=== PATIENT | female | born 1955 | race Caucasian/White ===

== ENCOUNTER 2017-01-22 11:12 | Observation (INO) | payer OTHER ==
[~2017-01-22 11:12] MED LIST: DEXAMETHASONE SOD PHOSPHATE INJ 4 MG/1 ML VIAL ONE; GLYCOPYRROLATE INJ 0.4 MG/2 ML VIAL ONE; LIDOCAINE 2% INJ-PF (20 MG/ML) 10 ML AMPUL ONE; NEOSTIGMINE METHYLSULFATE 10 MG/10 ML VIAL ONE; ONDANSETRON HCL INJ/PF 4 MG/2 ML SDV ONE; SUCCINYLCHOLINE CHLORIDE INJ 200 MG/10 ML VIAL ONE; VECURONIUM BROMIDE INJ 10 MG VIAL IV ONE
[2017-01-22] MEDS ORDERED: OXYCODONE-ACETAMINOPHEN 5-325 MG TABLET PO ONE (12:14)
[2017-01-22] MEDS ORDERED: ONDANSETRON 4 MG TAB.RAPDIS SL ONE (12:14)
--- NOTE | 2017-01-22 12:17 | ER Document Report ---
ED Medical Screen (RME) - General Chief Complaint: Abdominal Pain Stated Complaint: RIGHT SIDE ABDOMINAL PAIN Time seen by provider: 12:17 Mode of Arrival: Ambulatory Information source: Patient TRAVEL OUTSIDE OF THE [place] IN LAST 30 DAYS: No - HPI Patient complains to provider of: right upper quadrant abdominal pain Onset: This morning Onset/Duration: Sudden Quality of pain: Achy, Pressure, Sharp, Stabbing Severity: Moderate Pain Level: 4 Associated Symptoms: Nausea Exacerbated by: Denies Relieved by: Denies Similar symptoms previously: No Recently seen / treated by doctor: No Notes: 01/22/17 12:17 Patient is a 61-year-old female who presents to the emergency room complaining of right upper quadrant abdominal pain that started this morning, it is associated with nausea but no vomiting or diarrhea, no fever or chills, no urinary symptoms, no history of similar symptoms previously, patient has not had any abdominal surgeries in the past - Related Data Allergies/Adverse Reactions: No Known Allergies Allergy (Unverified 01/22/17 11:16) Past Medical History Renal/ Medical History: Denies: Hx Peritoneal Dialysis Physical Exam - Vital signs Vitals: Temp Pulse Resp BP Pulse Ox 98.2 F 90 24 H 139/86 H 98 01/22/17 11:19 01/22/17 11:19 01/22/17 11:19 01/22/17 11:19 01/22/17 11:19 Course - Vital Signs Vital signs: Temp Pulse Resp BP Pulse Ox 98.2 F 90 24 H 139/86 H 98 01/22/17 11:19 01/22/17 11:19 01/22/17 11:19 01/22/17 11:19 01/22/17 11:19
[2017-01-22 12:49] LABS: ABSOLUTE BASOPHILS # (AUTO) 0.1 10^3/uL (0.0-0.2); ABSOLUTE EOSINOPHILS # (AUTO) 0.2 10^3/uL (0.0-0.6); ABSOLUTE LYMPHOCYTES (AUTO) 2.7 10^3/uL (0.5-4.7); ABSOLUTE MONOCYTES (AUTO) 0.5 10^3/uL (0.1-1.4); ABSOLUTE NEUT (AUTO) 6.3 10^3/uL (1.7-8.2); BASOPHILS % (AUTO) 0.7 % (0-2); HEMATOCRIT 42.6 % (36.0-47.0); HEMOGLOBIN 15.2 g/dL (12.0-15.5); LYMPHOCYTES % (AUTO) 28.1 % (13-45); MEAN CORPUSCULAR HEMOGLOBIN 33.2 pg (27.0-33.4); MEAN CORPUSCULAR HGB CONC 35.6 g/dL (32.0-36.0); MEAN CORPUSCULAR VOLUME 93 fl (80-97); MONOCYTES % (AUTO) 5.1 % (3-13); RED BLOOD COUNT 4.57 10^6/uL (3.72-5.28); SEGMENTED NEUTROPHILS % (AUTO) 64.1 % (42-78); WHITE BLOOD COUNT 9.8 10^3/uL (4.0-10.5)
[2017-01-22 12:55] LABS: AMORPHOUS SEDIMENT,URINE TRACE /HPF; APPEARANCE,URINE SLIGHTLY-CLOUDY; BILIRUBIN,URINE NEGATIVE (NEGATIVE); GLUCOSE, URINE NEGATIVE (NEGATIVE); KETONES,URINE NEGATIVE (NEGATIVE); LEUKOCYTE ESTERASE,URINE MODERATE (NEGATIVE); NITRITE,URINE POSITIVE (NEGATIVE); PROTEIN,URINE NEGATIVE (NEGATIVE); URINE SPECIFIC GRAVITY 1.004; UROBILINOGEN,URINE NEGATIVE mg/dL (<2.0)
[2017-01-22 13:05] LABS: ALANINE AMINOTRANSFERASE 37 U/L (9-52); ALBUMIN 4.5 g/dL (3.5-5.0); ALKALINE PHOSPHATASE 104 U/L (38-126); ANION GAP 14 (5-19); ASPARTATE AMINO TRANSFERASE 30 U/L (14-36); BILIRUBIN,DIRECT 0.4 mg/dL (0.0-0.4); BILIRUBIN,TOTAL 1.1 mg/dL (0.2-1.3); BLOOD UREA NITROGEN 15 mg/dL (7-20); CARBON DIOXIDE 28 mmol/L (22-30); CHLORIDE 101 mmol/L (98-107); CREATININE RESULT 1.09 mg/dL (0.52-1.25); GLUCOSE 90 mg/dL (75-110); POTASSIUM 3.7 mmol/L (3.6-5.0); SODIUM 142.5 mmol/L (137-145); TOTAL PROTEIN 7.9 g/dL (6.3-8.2)
--- NOTE | 2017-01-22 13:49 | ER Document Report ---
ED GI/ - General Chief Complaint: Abdominal Pain Stated Complaint: RIGHT SIDE ABDOMINAL PAIN Time seen by provider: 13:46 Mode of Arrival: Ambulatory Information source: Patient Notes: 61-year-old female presented to ED for abdominal pain right side right flank pain this started this morning with nausea no vomiting. Denies any fever or chills or urinary symptoms. Has a history of hydronephrosis bladder reflux GERD and kidney reflux. States this pain does not feel like any of those. TRAVEL OUTSIDE OF THE [place] IN LAST 30 DAYS: No - HPI Patient complains to provider of: Abdominal pain. No: Vomiting Onset: This morning Timing/Duration: Sudden Severity at maximum: Severe Severity in ED: Moderate Pain Level: 3 Location: RUQ, RLQ, Right flank Vaginal bleeding (Compared to normal period): None Associated symptoms: Nausea Exacerbated by: Movement, Walking Relieved by: Denies Similar symptoms previously: No Recently seen / treated by doctor: No - Related Data Allergies/Adverse Reactions: No Known Allergies Allergy (Unverified 01/22/17 11:16) Past Medical History - General Information source: Patient - Social History Smoking Status: Never Smoker Cigarette use (# per day): No Chew tobacco use (# tins/day): No Smoking Education Provided: No Frequency of alcohol use: Social Drug Abuse: None Lives with: Family Family History: CAD, DM, Hyperlipidemia, Hypertension Patient has suicidal ideation: No Patient has homicidal ideation: No - Past Medical History Cardiac Medical History: Reports: Hx Hypertension Pulmonary Medical History: Reports: None EENT Medical History: Reports: None Neurological Medical History: Reports: None Endocrine Medical History: Reports: Hx Hypothyroidism Renal/ Medical History: Reports: Other - Hydronephrosis neurogenic bladder bladder reflux GI Medical History: Reports: None Musculoskeltal Medical History: Reports None Skin Medical History: Reports None Psychiatric Medical History: Reports: None Traumatic Medical History: Reports: None Infectious Medical History: Reports: None Past Surgical History: Reports: Hx Oral Surgery - [place] teeth, Hx Tubal Ligation - Immunizations Immunizations up to date: Yes Review of Systems - Review of Systems Constitutional: No symptoms reported EENT: No symptoms reported Cardiovascular: No symptoms reported Respiratory: No symptoms reported Gastrointestinal: Abdominal pain, Nausea Genitourinary: No symptoms reported Female Genitourinary: No symptoms reported Musculoskeletal: No symptoms reported Skin: No symptoms reported Hematologic/Lymphatic: No symptoms reported Neurological/Psychological: No symptoms reported Physical Exam - Vital signs Vitals: Temp Pulse Resp BP Pulse Ox 98.2 F 90 24 H 139/86 H 98 01/22/17 11:19 01/22/17 11:19 01/22/17 11:19 01/22/17 11:19 01/22/17 11:19 Interpretation: Normal - General General appearance: Appears well, Alert - HEENT Head: Normocephalic, Atraumatic Eyes: Normal Pupils: PERRL - Respiratory Respiratory status: No respiratory distress Chest status: Nontender Breath sounds: Normal Chest palpation: Normal - Cardiovascular Rhythm: Regular Heart sounds: Normal auscultation Murmur: No - Abdominal Inspection: Normal Distension: No distension Bowel sounds: Normal Tenderness: Tender - Right side upper and lower right flank Organomegaly: No organomegaly - Back Back: Normal, Nontender - Extremities General upper extremity: Normal inspection, Nontender, Normal color, Normal ROM , Normal temperature General lower extremity: Normal inspection, Nontender, Normal color, Normal ROM , Normal temperature, Normal weight bearing. No: Veena's sign - Neurological Neuro grossly intact: Yes Cognition: Normal Orientation: AAOx4 Jose Luis Coma Scale Eye Opening: Spontaneous Jose Luis Coma Scale Verbal: Oriented Jose Luis Coma Scale Motor: Obeys Commands [place] Coma Scale Total: 15 Speech: Normal Motor strength normal: LUE, RUE, LLE, RLE Sensory: Normal - Psychological Associated symptoms: Normal affect, Normal mood - Skin Skin Temperature: Warm Skin Moisture: Dry Skin Color: Normal Course - Re-evaluation Re-evalutation: 01/22/17 14:[address] Mcgregor with symptoms and assessment and a CT rule out knee stones ordered for her abdominal pain. She also has a abdominal ultrasound ordered and her labs are negative. The CAT scan came back positive for appendicitis. The surgeon was called but he is in surgery and a message was left for him to call back. - Vital Signs Vital signs: Temp Pulse Resp BP Pulse Ox 98.6 F 79 20 133/72 H 95 01/22/17 17:35 01/22/17 17:35 01/22/17 17:35 01/22/17 17:35 01/22/17 17:35 - Laboratory Result Diagrams: 01/22/17 12:15 01/22/17 12:15 Laboratory results interpreted by me: 01/22/17 01/22/17 12:15 12:20 Est GFR (Non-Af Amer) 51 L Urine Nitrite POSITIVE H Ur Leukocyte Esterase MODERATE H - Diagnostic Test Radiology reviewed: Image reviewed, Reports reviewed Discharge - Discharge Clinical Impression: Appendicitis Qualifiers: Appendicitis type: acute appendicitis Acute appendicitis type: unspecified acute appendicitis type Qualified Code(s): K35.80 - Unspecified acute appendicitis Disposition: ADMITTED INPATIENT Admitting Provider: Surgicalist - [facility] Admitted: Surgical Floor
[2017-01-22] MEDS ORDERED: AMPICILLIN SOD/SULBACTAM 3 GM VIAL IV ONE (14:31)
[2017-01-22] MEDS ORDERED: NORMAL SALINE 1000 ML 1,000 ML IV ONE ×2 (14:31)
--- NOTE | 2017-01-22 17:19 | HISTORY AND PHYSICAL E ---
History and Physical NAME: ELLIOT HORVATH : 1955 AGE: 61Y ADMITTED: 01/22/2017 ROOM: CHIEF COMPLAINT: Abdominal pain. HISTORY OF PRESENT ILLNESS: This is a 61-year-old female who complained of right lower quadrant pains around 7 o'clock this morning associated with nausea. She went to the emergency room where a CAT scan of the abdomen revealed acute appendicitis. PAST SURGICAL HISTORY: History of tubal ligation. No other previous surgical problems. PAST MEDICAL HISTORY: 1. History of neurogenic bladder with bladder reflux and hydronephrosis. 2. Hypothyroidism. 3. Hypercholesterolemia. 4. Hypertension. 5. Reflux. MEDICATIONS: 1. She takes Botox for the bladder neurogenic condition. 2. Dexilant for reflux. 3. Hydrochlorothiazide for hypertension. 4. Vesicare. 5. Nitrofurantoin for bladder infections. 6. Citalopram 10 mg daily. 7. Synthroid 75 mcg daily. 8. She also has metronidazole 1% applied to her face daily. REVIEW OF SYSTEMS: As in HPI. Complaining of occasional bladder discomfort and back discomfort. Occasional pain on voiding. Abdominal right lower quadrant pains associated with nausea. The rest of the systems are unremarkable. ALLERGIES: None known. PHYSICAL EXAMINATION: GENERAL: Well-developed, well-nourished, 61-year-old female, alert and oriented and complaining of severe right lower quadrant pains. HEENT: Neck is supple. No thyromegaly. LUNGS: Clear. HEART: Regular sinus rhythm. ABDOMEN: Soft with tenderness in the right lower quadrant with rebound. There is also Rovsing sign. EXTREMITIES: No edema. IMPRESSIONS: Acute appendicitis. PLAN: 1. It is decided the patient will be on IV antibiotics. 2. Laparoscopic appendectomy. DICTATING PHYSICIAN: PHYLICIA SIMON M.D. [id number] PHY#: [id number] ID: [id number] JOB#: [id number] ACCT: [id number] cc:Anny FAUST M.D. >
[2017-01-22] MEDS ORDERED: IBUPROFEN INJ 800 MG/8 ML VIAL IV ONE (17:53)
[2017-01-22] MEDS ORDERED: PROPOFOL INJ 200 MG/20 ML VIAL IV ONE (17:53)
[2017-01-22] MEDS ORDERED: MIDAZOLAM 2 MG/2 ML INJ ONE (17:53)
[2017-01-22] MEDS ORDERED: FENTANYL CITRATE INJ/PF 100 MCG/2 ML AMPUL ONE (17:53)
[2017-01-22] MEDS ORDERED: BUPIVACAINE HCL 0.25 % INJ/PF (2.5 MG/1 ML) 30 ML VIAL ONE (18:08)
[2017-01-22] MEDS ORDERED: ACETAMINOPHEN 100 ML IV ONE (18:23)
[2017-01-22] MEDS ORDERED: PROMETHAZINE HCL INJ 25 MG/1 ML VIAL IV PRN ×2 (19:18)
[2017-01-22] MEDS ORDERED: DIPHENHYDRAMINE HCL 50 MG/ML VIAL IV PRN (19:18)
[2017-01-22] MEDS ORDERED: MORPHINE SULFATE 10 MG/ML INJ IV PRN (19:18)
[2017-01-22] MEDS ORDERED: FENTANYL CITRATE INJ/PF 100 MCG/2 ML AMPUL IV PRN ×3 (19:18)
[2017-01-22] MEDS ORDERED: MEPERIDINE HCL/PF INJ 25 MG/1 ML DISP.SYRIN IV PRN (19:18)
--- NOTE | 2017-01-22 19:33 | EKG REPORT ---
SEVERITY:- ABNORMAL ECG - SINUS RHYTHM NS ST CHANGES : Confirmed by: Cindy Galvan MD 22-Jan-2017 19:32:46
[2017-01-22] MEDS ORDERED: HYDROMORPHONE HCL INJ/PF 2 MG/ML AMPULE IV PRN (20:45)
[2017-01-22] MEDS ORDERED: OXYCODONE-ACETAMINOPHEN 5-325 MG TABLET PO PRN (20:46)
[2017-01-22] MEDS ORDERED: NORMAL SALINE 1000 ML 1,000 ML IV PRN (20:47)
--- NOTE | 2017-01-22 20:53 | OPERATIVE REPORT E ---
Operative Report NAME: ELLIOT HORVATH : 1955 AGE: 61Y DATE OF SURGERY: ROOM: ED21 PREOPERATIVE DIAGNOSIS: ACUTE APPENDICITIS. POSTOPERATIVE DIAGNOSIS: ACUTE APPENDICITIS. OPERATION: Laparoscopic appendectomy. SURGEON: PHYLICIA SIMON M.D. ANESTHESIA: General. INDICATION: This is a 61-year-old female with abdominal pains and a CAT scan of the abdomen revealed acute appendicitis. PROCEDURE: After adequate general anesthesia, the patient was placed in the supine position and the abdomen prepped and draped in the usual sterile fashion. Appropriate timeout was then performed. Next, an incision made over the previous tubal ligation laparoscopy scar and deepened through the subcu. The fascia was then identified and grasped with 2 Leandra clamps on its side and divided in the middle with the 15 blade. The peritoneal cavity was then palpated with the use of the index finger and a little blunt dissection, carried down to the peritoneum. Next, a Jose C trocar was then inserted into the abdominal cavity and CO2 insufflated up to a pressure of 15 mmHg. Next, a camera was then inserted and 2 other trocars placed, a 5 mm in the suprapubic and a 12 mm in the left lower quadrant under direct vision. Next, the appendix was then identified and noted to be going superiorly and laterally. The base of the appendix was subsequently grasped and an opening made towards the neck with the use of Harmonic geetha. Next, the junction of the appendix and the cecum was then stapled with an Endo UZIEL. Next, the rest of the mesoappendix was subsequently divided with the Harmonic geetha. Adequate hemostasis was noted. Next, the appendiceal specimen, which was quite inflamed, was then placed in an Endobag through the umbilical port. It was then pulled out and appendiceal dissection again reinspected and slightly gently irrigated and no active bleeding noted. No other obvious abnormality noted on visual inspection of the rest of the abdominal cavity. Next, all of the trocars were then removed. Next, the fascial defect at the umbilical area was then closed with [id number] suture using 0 Vicryl and all of the skin incision closed with 4-0 Vicryl undyed. Dermabond was used as a dressing on top of the incisions. Needle, instrument and sponge count were all correct and estimated blood loss was minimal. The patient was then brought to the recovery room in satisfactory condition. DICTATING PHYSICIAN: PHYLICIA SIMON M.D. [id number] Y#: [id number] ID: [id number] JOB#: [id number] ACCT: [id number] cc:PHYLICIA SIMON M.D. >
[2017-01-22] MEDS ORDERED: ONDANSETRON HCL INJ/PF 4 MG/2 ML SDV IV PRN (21:28)
[2017-01-22] MEDS ORDERED: ONDANSETRON HCL INJ/PF 4 MG/2 ML SDV ONE (21:33)
[2017-01-22] MEDS: PIPERACILLIN SODIUM/TAZOBACTAM 3.375 GM in NORMAL SALINE 100 ML IV SCH (22:59)
[2017-01-23] MEDS: PIPERACILLIN SODIUM/TAZOBACTAM 3.375 GM in NORMAL SALINE 100 ML IV SCH (05:28)
[2017-01-23 06:09] LABS: HEMATOCRIT 38.9 % (36.0-47.0); HEMOGLOBIN 13.6 g/dL (12.0-15.5); HGB HCT DIFFERENCE 1.9; MEAN CORPUSCULAR HEMOGLOBIN 32.5 pg (27.0-33.4); MEAN CORPUSCULAR HGB CONC 34.8 g/dL (32.0-36.0); MEAN CORPUSCULAR VOLUME 93 fl (80-97); RED BLOOD COUNT 4.17 10^6/uL (3.72-5.28); RED CELL DISTRIBUTION WIDTH 13.2 % (11.5-14.0); WHITE BLOOD COUNT 10.4 10^3/uL (4.0-10.5)
[2017-01-23 08:29] VITALS: BP 106/61
== END 2017-01-23 12:09 | disposition home or self-care (01) ==
LOC: ER 11:12 → EH 17:34 → INTOOBSV 17:34 → 4N 21:15
PROVIDERS: ADMIT Surgery; ATTEND Surgery
PROC: 0DTJ4ZZ Resection of Appendix, Percutaneous Endoscopic Approach (ICD-10-PCS; principal; 2017-01-22 18:30)
DX: K35.3 Acute appendicitis with localized peritonitis (principal); N31.9 Neuromuscular dysfunction of bladder, unspecified; I10 Essential (primary) hypertension; K21.9 Gastro-esophageal reflux disease without esophagitis; E03.9 Hypothyroidism, unspecified; Z79.899 Other long term (current) drug therapy; Z98.51 Tubal ligation status
CPT/HCPCS: 99285; 96374; 36415 ×2; 87086; 83690; 85025; 85027; 80053; 81001; 88304 ×2; 76380; 93005; 93010; 44970; J2250; J1100; S0119; J3010; J0295; J3490 ×2; J0330; J2405; J7030; J2704; J2543 ×2; J0131; 840; J1741